=== PATIENT | female | born 1955 | race Caucasian/White ===

== ENCOUNTER → 2017-06-11 | Outpatient (CLI) | payer BC ==
[~2017-06-11] MED LIST: ACETAMINOPHEN-120 ML PO; AMOXICILLIN 50500 MG PO; ASPIRIN EC81 M1 PO; AZITHROMYCIN 2250 MG; AZITHROMYCIN 2250 MG PO; CELEXA40 MG PO; CEPACOL SORE T1 EAC2 MM; FISH OIL 1,001000 M2 PO; FLEXERIL PO; HYDROCODON-ACE1 EACH; HYDROCODONE-AP1 EAC6 PO; IBUPROFEN 800800 M1 PO; LEVOTHYROXIN0.125 M1; MIRALAX255 GM PO; MULTIVITAMINS1 EAC7 PO; NAPROSYN500 MG PO; NEXIUM40 MG PO; NORCO 5-325 TA1 EACH PO; PERCOCET PO; PHENERGAN 25 MG25 M1 PO; PREVACID30 M2; PROAIR HFA8.5 GM; PROAIR HFA8.5 GM IH; ROBAXIN 750 MG750 M1 PO; SYNTHROID100 MCG PO; TRAZODONE 50 MG50 MG OR; TRAZODONE HCL50 MG PO; VALIUM5 MG PO; VENTOLIN HFA 1818 GM INH; VERAPAMIL E.R240 M1 PO; VIIBRYD40 MG; XANAX 1 MG TABLE1 MG PO; ZPAK PO
== END ==
LOC: M.RAD 13:47
DX: R06.02 Shortness of breath (principal); R05 Cough

== ENCOUNTER 2019-06-10 17:06 | Emergency (ER) | payer BC ==
[~2019-06-10] VITALS: Ht 167.6 cm; Wt 113.4 kg
--- NOTE | ~2019-06-10 | EKG ---
[place] [address] ELECTROCARDIOGRAM REPORT Name: ISABEL OREILLY Room: [facility]#: [id number] Admission: 06/10/19 Attend Phys: Discharge: 06/10/19 Date of : 59 Date of Service: 06/10/191806 Report #: [id number] THIS REPORT FOR: cc: Carter Ricks Vincent R. 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
[2019-06-10] MEDS ORDERED: METFORMIN HCL500 M3 PO (17:36)
[2019-06-10] MEDS ORDERED: CELEXA 10 MG TA10 M1 PO (17:36)
[2019-06-10] MEDS ORDERED: COZAAR 25 MG TA25 M1 PO (17:36)
[2019-06-10 18:26] LABS: ABSOLUTE EOSINOPHILS 0.2 thou/uL (0.0-0.7); ABSOLUTE LYMPHOCYTES 2.6 thou/uL (0.8-5.3); ABSOLUTE MONOCYTES 0.6 thou/uL (0.0-1.2); ABSOLUTE NEUTROPHILS 7.3 thou/uL (1.6-8.1); BASOPHILS 0.2 %; EOSINOPHILS 2.2 %; HEMATOCRIT 41.3 % (37.0-47.0); HEMOGLOBIN 13.9 gm/dL (12.0-15.0); MCH 27.4 pg (26.0-34.0); MCHC 33.6 g/dL (28.0-37.0); MCV 81.6 fL (80.0-100.0); MONOCYTES 5.7 %; MPV 7.8 fl. (7.2-11.1); NUCLEATED RBCS 0 /100WBC; PLATELET COUNT* 290 thou/uL (150-400); POLYS 67.9 %; RBC 5.06 mil/uL (4.20-5.00); RDW-CV 15.4 % (10.5-14.5); WBC 10.8 thou/uL (4.0-11.0)
[2019-06-10 18:32] LABS: CREATININE 0.9 mg/dL (0.6-1.3); POTASSIUM 3.8 mmol/L (3.5-5.1)
[2019-06-10 18:39] LABS: ALBUMIN 3.6 g/dL (3.4-5.0); TOTAL BILIRUBIN 0.3 mg/dL (<0.1-1.0); TOTAL PROTEIN 7.4 g/dL (6.4-8.2)
[2019-06-10] MEDS ORDERED: ZPAK PO (21:05)
[2019-06-10] MEDS ORDERED: VENTOLIN HFA 1818 GM INH (21:05)
[2019-06-10] MEDS ORDERED: TESSALON PERLE100 MG PO (21:05)
[2019-06-10] MEDS ORDERED: MEDROLDOSEPACK PO (21:05)
[2019-06-10 21:21] VITALS: BP 161/77
== END 2019-06-10 21:22 | disposition home or self-care (01) ==
LOC: M.ERS 17:06
PROVIDERS: Nurse Practitioner Family
DX: J10.1 Influenza due to other identified influenza virus with other respiratory manifestations (principal); I10 Essential (primary) hypertension; K21.9 Gastro-esophageal reflux disease without esophagitis; E03.9 Hypothyroidism, unspecified; E66.01 Morbid (severe) obesity due to excess calories; Z98.890 Other specified postprocedural states; Z91.041 Radiographic dye allergy status; Z88.0 Allergy status to penicillin; Z68.41 Body mass index [BMI] 40.0-44.9, adult

== ENCOUNTER 2020-03-31 08:14 | Observation (INO) | payer BC ==
[~2020-03-31] VITALS: Ht 167.6 cm; Wt 113.4 kg
[~2020-03-31 08:14] MED LIST changes: +CELEXA 10 MG TA10 M1 PO; +COZAAR 25 MG TA25 M1 PO; +MEDROLDOSEPACK PO; +METFORMIN HCL500 M3 PO; +TESSALON PERLE100 MG PO
[2020-03-31 08:15] VITALS: BP 162/78
[2020-03-31 08:41] LABS: ABSOLUTE BASOPHILS 0.1 thou/uL (0.0-0.2); ABSOLUTE EOSINOPHILS 0.1 thou/uL (0.0-0.7); ABSOLUTE MONOCYTES 0.5 thou/uL (0.0-1.2); ABSOLUTE NEUTROPHILS 6.4 thou/uL (1.6-8.1); EOSINOPHILS 1.6 %; HEMATOCRIT 39.3 % (37.0-47.0); HEMOGLOBIN 12.8 gm/dL (12.0-15.0); LYMPHOCYTES 21.7 %; MCH 26.8 pg (26.0-34.0); MCHC 32.6 g/dL (28.0-37.0); MCV 82.3 fL (80.0-100.0); MONOCYTES 5.2 %; MPV 7.6 fl. (7.2-11.1); NUCLEATED RBCS 0 /100WBC; PLATELET COUNT* 249 thou/uL (150-400); POLYS 70.5 %; RBC 4.78 mil/uL (4.20-5.00); RDW-CV 16.1 % (10.5-14.5); WBC 9.1 thou/uL (4.0-11.0)
[2020-03-31 08:55] LABS: CALCIUM 8.1 mg/dL (8.5-10.1); CREATININE 0.7 mg/dL (0.6-1.3); POTASSIUM 3.8 mmol/L (3.5-5.1)
[2020-03-31 08:59] LABS: ALBUMIN 3.5 g/dL (3.4-5.0); MAGNESIUM 1.8 mg/dL (1.8-2.4); TOTAL BILIRUBIN 0.3 mg/dL (<0.1-1.0)
--- NOTE | 2020-03-31 09:28 | EKG ---
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[place] : 1955 Requested By: Demetrio Hoffman Order Number: [id number] MD: Cesar Livingston Measurements Intervals [place] Rate: 90 P: 15 SC: 162 QRS: 5 QRSD: 92 T: 26 QT: 364 QTc: 446 Interpretive Statements Sinus rhythm Abnormal R-wave progression, early transition Baseline wander in lead(s) V1,V6 Compared to ECG 06/10/2019 18:07:36 No significant changes Electronically Signed On 03-31-2020 9:28:02 LOKIE ENGINEER by Cesar Livingston [email or web address] <ELECTRONICALLY SIGNED> By: Cesar Livingston MD, FACC 03/31/2028 8 8 Cesar Livingston MD, FAC /EPI
[2020-03-31 14:33] VITALS: BP 135/70
[2020-03-31 15:00] VITALS: BP 134/58
--- NOTE | 2020-03-31 16:33 | CON ---
[address] [address] CONSULTATION Name: ISABEL OREILLY Room: [address] Stu Killian#: [id number] Admission: 03/31/20 Attend Phys: Luther Reeves MD Discharge: Date of : 59 Report #: [id number] THIS REPORT FOR: //name// cc: Carter Ricks Vincent R. DO ~ DATE OF SERVICE: 03/31/2020 CARDIOLOGY CONSULTATION NOTE HISTORY OF PRESENT ILLNESS: The patient is a 64-year-old white female, who I was asked to see in the Emergency Room today after she complained of being short of breath. The patient has an extensive past medical history. She has been hospitalized several times here at [facility]. She states she has been short of breath for a number of years. 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 She apparently had a stress test in the past that showed no significant coronary artery disease. She was told she had a heart murmur in the past. Recently, she has been coughing and more short of breath. She has had a fever. She had a COVID test done that was negative recently. She went to see her tree fruit and nut farming supervisor 2 days ago and was given an inhaler and antibiotic. However, she continued to be short of breath. She also notes some heaviness of chest that goes into her left arm. She notes some pain in her neck. She denied any palpitations, syncope or peripheral edema. She has had no bleeding. Because of these symptoms, she came to the Emergency Room and was admitted for further evaluation and treatment. PAST MEDICAL HISTORY: Significant for previous breast biopsy, 3 C-sections, hypertension, diabetes. MEDICATIONS: Include verapamil, lisinopril, Synthroid, metformin. She takes a pill for depression. ALLERGIES: She has no known drug allergies. FAMILY HISTORY: Her father had bypass surgery. SOCIAL HISTORY: She is . She and her live in [place]. 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 REVIEW OF SYSTEMS: She is overweight, being 5 feet, 6 inches and 254 pounds. She does not snore. No liver disease, no kidney disease, no cancer. No chronic skin condition. PHYSICAL EXAMINATION: GENERAL: Revealed a large middle-aged female, [place] [address] CONSULTATION Name: ISABEL OREILLY Ella [address] [id number] Admission: 03/31/20 Attend Phys: Luther Reeves MD Discharge: Date of : 59 Report #: [id number] VITAL SIGNS: Blood pressure 140/70, pulse is 80, she is afebrile. HEENT: She was anicteric. Conjunctivae are pink. Mucous membranes moist. NECK: Veins do not appear distended. No carotid bruits. Neck supple. CHEST: Clear to auscultation. CARDIOVASCULAR: Regular rate and rhythm. There is a grade 2 systolic ejection murmur along the left sternal border. ABDOMEN: Obese. EXTREMITIES: Had no pitting edema. SKIN: Cool and dry. NEUROLOGIC: Nonfocal. LABORATORY DATA: Her ECG in the Emergency Room today showed a sinus rhythm. There is 1.5 mm, upsloping ST segment depression in V2, V3 and V4. Her workup, she actually had an echocardiogram done here in 2014 that showed ejection fraction of 60%. Her workup in the Emergency Room today, she had a portable chest x-ray that showed normal heart size, clear lung padilla. Calcified granuloma. LABORATORY DATA: Sodium 139, creatinine 0.7, glucose 244. Her troponins were all 0.06. White blood cell count 9.1, hemoglobin 12.8. IMPRESSION AND RECOMMENDATIONS: 1. Shortness of breath. Suspect secondary to chronic obstructive pulmonary disease. 2. Obesity. 3. Hypertension. The patient is on a calcium jeffry and YANDEL inhibitor. 4. Diabetes. 5. Bronchitis. 6. Chest pain. No evidence of acute coronary syndrome. I would consider a stress test in the future. <ELECTRONICALLY SIGNED> By: Cesar Livingston MD, FACC 03/31/20 1633 [id number] [id number] Livingston MD, FACC /nt
--- NOTE | 2020-03-31 19:43 | NUR ---
PT. ADMITTED FROM ER AROUND 1500. AOX4, VSS, CHEST PAIN UNDER CONTROL, DIET ADVANCED. CALL LIGHT AND PERSONAL BELONGINGS PLACED WITHIN REACH. PT. IN BED, WATCHING TV, IN NO APPARENT DISTRESS, AT SHIFT CHANGE.
[2020-03-31 20:00] VITALS: BP 136/75
[2020-04-01] VITALS: BP 123/63
[2020-04-01 04:00] VITALS: BP 152/85
--- NOTE | 2020-04-01 04:34 | NUR ---
ASSUMED CARE OF PT AFTER REPORT AT 1930. PT A&OX4. VSS. PHYSICAL ASSESSMENT COMPLETED AND CHARTED. PT ON RA. PT TRACING SR ON TELE. PT UPADLIB TO RESTROOM. PT COMPLAINED OF CHEST PAIN-MED GIVEN PER JUL. PT REQUESTED FOR SLEEPING AID & METFORMIN TO BE RESUME-DR AVERY MADE AWARE WITH NEW ORDER. CALL LIGHT WITHIN REACH.
[2020-04-01 05:04] LABS: ABSOLUTE BASOPHILS 0.1 thou/uL (0.0-0.2); ABSOLUTE EOSINOPHILS 0.2 thou/uL (0.0-0.7); ABSOLUTE LYMPHOCYTES 2.8 thou/uL (0.8-5.3); ABSOLUTE MONOCYTES 0.8 thou/uL (0.0-1.2); ABSOLUTE NEUTROPHILS 6.3 thou/uL (1.6-8.1); BASOPHILS 0.6 %; EOSINOPHILS 2.2 %; HEMATOCRIT 37.9 % (37.0-47.0); HEMOGLOBIN 12.3 gm/dL (12.0-15.0); LYMPHOCYTES 27.3 %; MCH 26.6 pg (26.0-34.0); MCHC 32.5 g/dL (28.0-37.0); MCV 82.1 fL (80.0-100.0); MONOCYTES 7.8 %; NUCLEATED RBCS 0 /100WBC; PLATELET COUNT* 278 thou/uL (150-400); POLYS 62.1 %; RBC 4.62 mil/uL (4.20-5.00); RDW-CV 15.9 % (10.5-14.5); WBC 10.2 thou/uL (4.0-11.0)
[2020-04-01 05:15] LABS: CALCIUM 8.8 mg/dL (8.5-10.1); CREATININE 0.8 mg/dL (0.6-1.3); POTASSIUM 3.8 mmol/L (3.5-5.1)
[2020-04-01 10:49] VITALS: BP 146/57
[2020-04-01] MEDS ORDERED: NITROGLYCERIN0.4 MG SUBLING (11:00)
== END 2020-04-01 11:10 | disposition home or self-care (01) ==
LOC: M.ERS 08:14 → M.TBA-ER 09:59 → M.2W 15:10
PROVIDERS: Emergency Medicine Emergency Medical Services; ADMIT Internal Medicine; ATTEND Internal Medicine
DX: R07.89 Other chest pain (principal); E11.9 Type 2 diabetes mellitus without complications; K21.9 Gastro-esophageal reflux disease without esophagitis; J40 Bronchitis, not specified as acute or chronic; I10 Essential (primary) hypertension; E03.9 Hypothyroidism, unspecified; F32.9 Major depressive disorder, single episode, unspecified; E66.9 Obesity, unspecified; Z68.41 Body mass index [BMI] 40.0-44.9, adult; Z79.84 Long term (current) use of oral hypoglycemic drugs; Z79.899 Other long term (current) drug therapy; Z20.828 Contact with and (suspected) exposure to other viral communicable diseases

== ENCOUNTER → 2021-04-26 | Outpatient (CLI) | payer OTHER ==
[~2021-04-26] MED LIST changes: +NITROGLYCERIN0.4 MG SUBLING
== END ==
LOC: M.ULTRA 07:50
PROVIDERS: ATTEND Family Medicine
DX: K76.0 Fatty (change of) liver, not elsewhere classified (principal)

== ENCOUNTER → 2021-05-02 | Outpatient (CLI) | payer OTHER | LOC: M.NUC 07:21 | PROVIDERS: ATTEND Family Medicine | DX: R10.11 Right upper quadrant pain (principal) ==

== ENCOUNTER 2021-05-05 07:16 | Emergency (ER) | payer BC ==
[~2021-05-05] VITALS: Ht 167.6 cm; Wt 97.5 kg
[2021-05-05] MEDS ORDERED: METOPROLOL SUCC25 M1 PO (07:40)
[2021-05-05] MEDS ORDERED: SYMBICORT160 MCG/4. INH (07:41)
[2021-05-05 07:43] LABS: URINE BILIRUBIN NEGATIVE (Negative); URINE BLOOD NEGATIVE (Negative); URINE CLARITY CLEAR; URINE COLOR YELLOW; URINE GLUCOSE-RANDOM NEGATIVE (Negative); URINE KETONES NEGATIVE (Negative); URINE LEUKOCYTES-REFLEX NEGATIVE (Negative); URINE PROTEIN TRACE (Negative); URINE SPECIFIC GRAVITY >= 1.030 (1.005-1.030)
[2021-05-05] MEDS ORDERED: HYDROCODON-ACE1 EAC7 PO (07:49)
[2021-05-05] MEDS ORDERED: PYRIDIUM200 MG PO (07:49)
[2021-05-05] MEDS ORDERED: MACROBID 100 M100 M1 PO (07:49)
[2021-05-05 07:53] LABS: SQUAMOUS NONE SEEN /LPF (0-3); URINE NITRITE-REFLEX POSITIVE (Negative)
[2021-05-05 07:54] LABS: CASTS None Seen /LPF (None Seen); CRYSTALS None Seen /LPF (None Seen); URINE RBC None Seen /HPF (0-2); URINE WBC-REFLEX 0-5 Rare /HPF (0-5)
[2021-05-05 08:26] VITALS: BP 185/90
== END 2021-05-05 08:26 | disposition home or self-care (01) ==
LOC: M.ERS 07:16
PROVIDERS: Family Medicine
DX: N39.0 Urinary tract infection, site not specified (principal); I10 Essential (primary) hypertension; K21.9 Gastro-esophageal reflux disease without esophagitis; E03.9 Hypothyroidism, unspecified; F32.9 Major depressive disorder, single episode, unspecified; Z98.890 Other specified postprocedural states; E11.9 Type 2 diabetes mellitus without complications; E66.9 Obesity, unspecified; Z68.34 Body mass index [BMI] 34.0-34.9, adult; Z79.899 Other long term (current) drug therapy; Z91.041 Radiographic dye allergy status; Z88.0 Allergy status to penicillin

== ENCOUNTER 2021-05-07 17:55 | Emergency (ER) | payer BC ==
[~2021-05-07] VITALS: Ht 167.6 cm; Wt 113.4 kg
[~2021-05-07 17:55] MED LIST changes: +HYDROCODON-ACE1 EAC7 PO; +MACROBID 100 M100 M1 PO; +METOPROLOL SUCC25 M1 PO; +PYRIDIUM200 MG PO; +SYMBICORT160 MCG/4. INH
[2021-05-07 18:56] LABS: INFLUENZA A ANTIGEN Negative (Negative); INFLUENZA B ANTIGEN Negative (Negative)
[2021-05-07 19:12] VITALS: BP 130/73
== END 2021-05-07 19:12 | disposition left against medical advice (07) ==
LOC: M.ERS 17:55
PROVIDERS: Nurse Practitioner Family
DX: U07.1 COVID-19 (principal); Z20.822 Contact with and (suspected) exposure to COVID-19

== ENCOUNTER 2021-05-08 04:36 | Inpatient (IN) | payer BC ==
[~2021-05-08] VITALS: Ht 167.6 cm; Wt 114.8 kg
[2021-05-08 04:57] VITALS: BP 132/56
[2021-05-08 05:28] LABS: ABSOLUTE LYMPHOCYTES 1.8 thou/uL (0.8-5.3); ABSOLUTE MONOCYTES 1.5 thou/uL (0.0-1.2); ABSOLUTE NEUTROPHILS 12.1 thou/uL (1.6-8.1); BASOPHILS 0.1 %; EOSINOPHILS 0.2 %; HEMATOCRIT 27.9 % (37.0-47.0); HEMOGLOBIN 8.9 gm/dL (12.0-15.0); LYMPHOCYTES 11.6 %; MCH 25.1 pg (26.0-34.0); MCV 78.5 fL (80.0-100.0); MONOCYTES 9.6 %; MPV 7.7 fl. (7.2-11.1); NUCLEATED RBCS 0 /100WBC; PLATELET COUNT* 295 thou/uL (150-400); POLYS 78.5 %; RBC 3.55 mil/uL (4.20-5.00); RDW-CV 16.6 % (10.5-14.5); WBC 15.5 thou/uL (4.0-11.0)
[2021-05-08 05:30] LABS: URINE BLOOD NEGATIVE (Negative); URINE CLARITY CLEAR; URINE COLOR YELLOW; URINE GLUCOSE-RANDOM NEGATIVE (Negative); URINE KETONES TRACE (Negative); URINE LEUKOCYTES-REFLEX NEGATIVE (Negative); URINE PROTEIN 1+ (Negative); URINE SPECIFIC GRAVITY 1.025 (1.005-1.030)
[2021-05-08 05:31] LABS: URINE BILIRUBIN 1+ (Negative); URINE NITRITE-REFLEX POSITIVE (Negative)
[2021-05-08 05:32] LABS: BACTERIA-REFLEX 1-9 Few /HPF (None Seen); CASTS None Seen /LPF (None Seen); CRYSTALS None Seen /LPF (None Seen); SQUAMOUS 0-3 Few /LPF (0-3); URINE RBC 0-2 Rare /HPF (0-2); URINE WBC-REFLEX 0-5 Rare /HPF (0-5)
[2021-05-08 05:33] LABS: ACETEST (KETONE CONFIRMATORY) Small (Negative)
[2021-05-08 05:39] LABS: AMP/METHAMP Negative (Negative); BARBITURATES Negative (Negative); BENZODIAZEPINES Negative (Negative); COCAINE Negative (Negative); METHADONE Negative (Negative); OPIATES POSITIVE (Negative); PCP Negative (Negative); THC Negative (Negative)
[2021-05-08 05:49] LABS: CALCIUM 8.5 mg/dL (8.5-10.1); CREATININE 0.9 mg/dL (0.6-1.3); POTASSIUM 3.7 mmol/L (3.5-5.1)
[2021-05-08 05:51] LABS: ALBUMIN 2.8 g/dL (3.4-5.0); TOTAL BILIRUBIN 0.4 mg/dL (<0.1-1.0); TOTAL PROTEIN 6.9 g/dL (6.4-8.2)
--- NOTE | 2021-05-08 09:40 | NUR ---
PT C/O THAT DR. VALERA "DOES NOT KNOW WHAT HE IS DOING" AND SHE WOULD LIKE TO SPEAK WITH HIM. PT ALSO C/O THAT EVERY TIME SHE PUSHES HER CALL LIGHT THIS NURSE DOES NOT IMMEDIATELY COME INTO HER ROOM. THIS NURSE EXPLAINED TO THE PT THAT I ALSO HAVE OTHER PATIENTS THAT NEED ATTENTION AND I TRY TO TO RESPOND QUICK I CAN. PT ASKED BEFORE THIS NURSE AND DR. VALERA LEFT HER ROOM IF SHE NEEDED ANYTHING ELSE AND SHE SAID "NO". PT ALSO REASSURED THAT IF SHE PUSHES HER CALL LIGHT THAT A RN OR TECH WILL RESPOND QUICKLY POSSIBLE.
[2021-05-08 16:04] VITALS: BP 126/47
--- NOTE | 2021-05-08 17:24 | NUR ---
PT GIVEN DINNER.
[2021-05-08 20:00] VITALS: BP 134/68
[2021-05-09] VITALS (7 sets, daily range): BP systolic 110–133; BP diastolic 32–67
--- NOTE | 2021-05-09 01:07 | NUR ---
PT REFUSING INPATIENT BED AT THIS TIME
[2021-05-09 03:30] LABS: HEMOGLOBIN 7.8 gm/dL (12.0-15.0); MCH 25.1 pg (26.0-34.0); MCHC 32.4 g/dL (28.0-37.0); MCV 77.3 fL (80.0-100.0); MPV 7.7 fl. (7.2-11.1); RBC 3.1 mil/uL (4.20-5.00); WBC 11.6 thou/uL (4.0-11.0)
[2021-05-09 03:50] LABS: ALBUMIN 2.5 g/dL (3.4-5.0); CALCIUM 8.3 mg/dL (8.5-10.1); CREATININE 0.7 mg/dL (0.6-1.3); MAGNESIUM 2.4 mg/dL (1.8-2.4); TOTAL BILIRUBIN 0.2 mg/dL (<0.1-1.0); TOTAL PROTEIN 6.3 g/dL (6.4-8.2)
--- NOTE | 2021-05-09 09:55 | NUR ---
Pt is admitted to the hospital on 05/08/21 with Covid and Ovarian Mass. She was just at our ER on 05/05/21 with a UTI and then discharged home. Called into patient's room to complete assessment. Pt lives with her spouse in the basement of her son's home and reports they have a walk out basement so they have no stairs. Pt was previously independent in ambulation and ADL's. No hx of DME, HH, or SNF. Pt fills her prescriptions at the [facility] in [place]. Pt reports she saw her PCP 1 month ago. Per doctor's notes - it would apppear they attempted to transfer patient to another hospital for further treatment for ovarian mass but no bed could be found. Attempted to discuss completing DPOA paperwork but pt refused. CM to continue to follow for discharge planning.
[2021-05-09 21:06] LABS: CA 125 12.6 U/mL (0.0-38.1)
[2021-05-10 00:08] VITALS: BP 135/61
[2021-05-10 04:02] VITALS: BP 115/59
--- NOTE | 2021-05-10 04:02 | NUR ---
RECEIVED REPORT FROM ED RN. PT TRANSFERRED TO 105. PT A&OX4. VSS. MOBILE APPLICATION DEVELOPMENT LEAD IN PLACE. ADMISSION HISTORY & PHYSICAL ASSESSMENT COMPLETED AND CHARTED. PT ON RA. PT TRACING SR ON TELE. PT UPADLIB TO RESTROOM. ORIENTED TO ROOM & CALL LIGHT. CALL LIGHT WITHIN REACH.
[2021-05-10 04:24] LABS: HEMOGLOBIN 7.6 gm/dL (12.0-15.0); MCH 25.2 pg (26.0-34.0); MCV 76.3 fL (80.0-100.0); MPV 7.9 fl. (7.2-11.1); RBC 3.02 mil/uL (4.20-5.00); WBC 12.2 thou/uL (4.0-11.0)
[2021-05-10 04:54] LABS: ALBUMIN 2.4 g/dL (3.4-5.0); CALCIUM 8.1 mg/dL (8.5-10.1); CREATININE 0.7 mg/dL (0.6-1.3); MAGNESIUM 2.1 mg/dL (1.8-2.4); POTASSIUM 3.5 mmol/L (3.5-5.1); TOTAL BILIRUBIN 0.2 mg/dL (<0.1-1.0); TOTAL PROTEIN 5.9 g/dL (6.4-8.2)
[2021-05-10 08:00] VITALS: BP 130/68
[2021-05-10] MEDS ORDERED: DOXYCYCLINE 10100 MG PO (10:10)
[2021-05-10] MEDS ORDERED: CEFDINIR300 MG PO (10:10)
[2021-05-10] MEDS ORDERED: DEXAMETHASONE 22 M1 PO (10:10)
[2021-05-10 13:01] VITALS: BP 144/62
--- NOTE | 2021-05-10 13:39 | NUR ---
CM FOLLOWUP PT MED CLEAR FOR DC HOME WITH SPOUSE. PT COMPLETED REST/EX TEST AND DOES NOT REQUIRE HOME O2. PT PROVIDED LISTING OF [employer] PROVIDERS TO FOLLOWUP WITH NEXT WEEK.
[2021-05-10 14:24] VITALS: BP 144/62
== END 2021-05-10 15:00 | disposition home or self-care (01) | DRG 177 ==
LOC: M.ERS 04:36 → M.ORTHSURG 11:18 → M.TBA-ER 11:18 → M.ORTHSURG 05-09 20:01
PROVIDERS: Emergency Medicine; ADMIT Internal Medicine; ATTEND Internal Medicine
DX: U07.1 COVID-19 (principal); J12.82 Pneumonia due to coronavirus disease 2019; J96.01 Acute respiratory failure with hypoxia; N39.0 Urinary tract infection, site not specified; Z68.41 Body mass index [BMI] 40.0-44.9, adult; E11.65 Type 2 diabetes mellitus with hyperglycemia; D64.9 Anemia, unspecified; K21.9 Gastro-esophageal reflux disease without esophagitis; E66.01 Morbid (severe) obesity due to excess calories; E03.9 Hypothyroidism, unspecified